=== PATIENT | female | born 1995 | race Two or more races ===

== ENCOUNTER → 2025-06-03 | Outpatient (CLI) | payer OTHER | LOC: M WHC 12:58 | PROVIDERS: ATTEND Nurse Practitioner Primary Care | DX: N60.12 Diffuse cystic mastopathy of left breast (principal) ==

== ENCOUNTER → 2025-06-15 | Outpatient (CLI) | payer OTHER | LOC: M WHC 14:06 | PROVIDERS: ATTEND Nurse Practitioner Family | DX: Z34.82 Encounter for supervision of other normal pregnancy, second trimester (principal); Z3A.21 21 weeks gestation of pregnancy ==

== ENCOUNTER → 2025-07-16 | Outpatient (CLI) | payer OTHER ==
[2025-07-16 13:30] LABS: PLATELET COUNT, AUTOMATED 168 10^3/uL (150-450)
[2025-07-16 13:55] LABS: GLUCOSE CHALLENGE TEST 1 HOUR 138 MG/DL (LESS THAN 140)
[2025-07-16 14:11] LABS: Trichomonas vaginalis (AMP) NOT DETECTED (NEGATIVE)
[2025-07-16 14:22] LABS: HIV 1&2 SCREEN NEGATIVE (NEGATIVE)
[2025-07-16 14:30] LABS: HEPATITIS C VIRUS ABY INDEX < 0.02 INDEX (<0.8)
[2025-07-16 14:34] LABS: GC DNA AMPLIFICATION NEGATIVE (NEGATIVE)
== END ==
LOC: M PLALAB 10:16
PROVIDERS: ATTEND Nurse Practitioner Family
DX: Z34.80 Encounter for supervision of other normal pregnancy, unspecified trimester (principal); Z3A.00 Weeks of gestation of pregnancy not specified

== ENCOUNTER → 2025-10-05 | Outpatient (REF) | payer OTHER | LOC: M SFHCWAGY 14:59 | PROVIDERS: ATTEND Obstetrics & Gynecology | DX: Z34.83 Encounter for supervision of other normal pregnancy, third trimester (principal) ==

== ENCOUNTER 2025-10-17 04:30 | Inpatient (IN) | payer OTHER ==
[~2025-10-17] VITALS: Ht 154.9 cm; Wt 65.5 kg
[2025-10-17 04:43] VITALS: BP 133/82
[2025-10-17 05:25] LABS: PLATELET COUNT, AUTOMATED 171 10^3/uL (150-450)
[2025-10-17] MEDS ORDERED: OXYTOCIN 30UNITS IN 0.9% NaCl 500ML IV BAG IV ONE (05:26)
[2025-10-17] MEDS: OXYTOCIN DRIP 30 UNITS in IV 1 EA IV PRN (05:35)
[2025-10-17] MEDS ORDERED: LIDOCAINE 1% MDV 20 ML VIAL As Ordered ONE (05:41)
[2025-10-17] MEDS: LIDOCAINE 1% MDV 20 ML VIAL INFIL PRN (05:45)
[2025-10-17] MEDS ORDERED: CARBOPROST TROMETHAMINE 250 MCG/ML AMP IM PRN (06:05)
[2025-10-17] MEDS ORDERED: TRANEXAMIC ACID INJection 1,000 MG in NS 100 ML IV PRN (06:05)
[2025-10-17] MEDS ORDERED: METHYLERGONOVINE MALEATE 0.2 MG/ML 1 ML VIAL IM PRN (06:05)
[2025-10-17] MEDS ORDERED: ACETAMINOPHEN 325 MG TAB PO PRN (06:25)
[2025-10-17] MEDS ORDERED: IBUPROFEN 600 MG TAB PO PRN (06:25)
[2025-10-17] MEDS ORDERED: DOCUSATE SODIUM 100 MG CAPSULE PO PRN (06:25)
[2025-10-17] MEDS ORDERED: METHYLERGONOVINE MALEATE 0.2 MG TAB PO PRN (06:25)
[2025-10-17] MEDS ORDERED: RHOGAM 300MCG (1500IU) INJ IM SCH (06:25)
[2025-10-17] MEDS ORDERED: CALCIUM CARBONATE 500 MG CHEW U/D PO PRN (06:25)
[2025-10-17] MEDS ORDERED: ANUSOL HC CREAM 30 GM TOP PRN (06:25)
[2025-10-17] MEDS ORDERED: MOM 30 ML SUSPENSION UDC PO PRN (06:25)
[2025-10-17 06:28] LABS: HIV 1&2 SCREEN NEGATIVE (NEGATIVE)
[2025-10-17 06:36] LABS: HEPATITIS C VIRUS ABY INDEX < 0.02 INDEX (<0.8)
[2025-10-17 07:07] VITALS: BP 125/68
[2025-10-17] MEDS: ACETAMINOPHEN 500 MG TAB PO PRN (07:15)
[2025-10-17 07:22] VITALS: BP 121/68
[2025-10-17 08:50] VITALS: BP 120/65; O2SAT 98
[2025-10-17] MEDS: FERROUS SULFATE 325 MG TAB PO SCH (09:33)
[2025-10-17] MEDS: PRENATAL VITAMINS CHEWABLE TABLET PO SCH (09:33)
[2025-10-17] MEDS ORDERED: BUTORPHANOL 2 MG/ML 1 ML VIAL IV ONE (09:40)
[2025-10-17] MEDS: DIBUCAINE 1% OINTMENT 30 GM TOP PRN (16:23)
[2025-10-17 18:00] VITALS: BP 125/72; O2SAT 96
[2025-10-18 05:30] VITALS: BP 100/54; O2SAT 98
[2025-10-18 18:00] VITALS: BP 112/68; O2SAT 96
[2025-10-18] MEDS: SIMETHICONE 80MG CHEW TAB PO PRN (20:12)
[2025-10-19 06:00] VITALS: BP 111/59; O2SAT 100
[2025-10-19] MEDS ORDERED: MEASLES,MUMPS,RUBELLA VACCINE INJ (MMR-II) SC.IMMUN ONE (09:00)
[2025-10-19] MEDS ORDERED: IBUP600T42 PO (09:04)
[2025-10-19] MEDS ORDERED: ACET-683 PO (09:04)
[2025-10-19 09:55] VITALS: BP 111/59; TEMP 97.8; O2SAT 100
[2025-10-19] MEDS: IBUPROFEN 800 MG TAB PO PRN (15:12)
== END 2025-10-19 14:45 | disposition home or self-care (01) | DRG 807 ==
LOC: M LDO 04:30 → M LDI 04:50 → M OBS 08:40
PROVIDERS: ADMIT Advanced Practice Midwife; ATTEND Advanced Practice Midwife
PROC: 10E0XZZ Delivery of Products of Conception, External Approach (ICD-10-PCS; principal; 2025-10-17)
PROC: 0HQ9XZZ Repair Perineum Skin, External Approach (ICD-10-PCS; 2025-10-17)
DX: O70.0 First degree perineal laceration during delivery (principal); Z37.0 Single live birth; Z3A.38 38 weeks gestation of pregnancy